=== PATIENT | female | born 1980 ===

== ENCOUNTER → 2020-01-26 | Outpatient (CLI) | payer OTHER | END | disposition home or self-care (01) | LOC: PRENATAL 08:13 | PROVIDERS: ATTEND Obstetrics & Gynecology Maternal & Fetal Medicine | DX: Z36.89 Encounter for other specified antenatal screening (principal); O36.80X1 Pregnancy with inconclusive fetal viability, fetus 1; O09.521 Supervision of elderly multigravida, first trimester; Z3A.11 11 weeks gestation of pregnancy ==

== ENCOUNTER → 2020-03-21 | Outpatient (CLI) | payer OTHER | END | disposition home or self-care (01) | LOC: PRENATAL 08:00 | PROVIDERS: ATTEND Obstetrics & Gynecology Maternal & Fetal Medicine | DX: O35.0XX1 Maternal care for (suspected) central nervous system malformation in fetus, fetus 1 (principal); O35.3XX1 Maternal care for (suspected) damage to fetus from viral disease in mother, fetus 1; O98.512 Other viral diseases complicating pregnancy, second trimester; Z36.89 Encounter for other specified antenatal screening; Z3A.19 19 weeks gestation of pregnancy ==

== ENCOUNTER → 2020-05-24 | Outpatient (CLI) | payer OTHER | END | disposition home or self-care (01) | LOC: PRENATAL 08:00 | PROVIDERS: ATTEND Obstetrics & Gynecology Maternal & Fetal Medicine | DX: O26.842 Uterine size-date discrepancy, second trimester (principal); O09.522 Supervision of elderly multigravida, second trimester; O99.212 Obesity complicating pregnancy, second trimester; Z36.89 Encounter for other specified antenatal screening; Z3A.28 28 weeks gestation of pregnancy ==

== ENCOUNTER 2020-07-20 10:45 | Inpatient (IN) | payer OTHER ==
[~2020-07-20] VITALS: Ht 160 cm; Wt 3.2 kg
[2020-07-30] MEDS ORDERED: PRENATAL CAPLE1 EAC1 PO (14:23)
[2020-08-18] MEDS ORDERED: AMPHETAMINE SAL20 M1 (10:27)
[2020-08-22] MEDS ORDERED: IBUPROFEN800 MG PO (13:49)
== END 2020-08-22 13:55 | disposition home or self-care (01) | DRG 787 ==
LOC: OB/GYN 07-27 10:45 → O/R 08-18 05:25 → OB/GYN 08-18 12:10
PROVIDERS: ADMIT Specialist; ATTEND Specialist
PROC: 4A1HXFZ Monitoring of Products of Conception, Cardiac Rhythm, External Approach (ICD-10-PCS; 2020-08-18)
PROC: 10D00Z1 Extraction of Products of Conception, Low, Open Approach (ICD-10-PCS; principal; 2020-08-18 05:00)
DX: O65.9 Obstructed labor due to maternal pelvic abnormality, unspecified (principal); O99.63 Diseases of the digestive system complicating the puerperium; K91.89 Other postprocedural complications and disorders of digestive system; O48.0 Post-term pregnancy; Z3A.41 41 weeks gestation of pregnancy; Z37.0 Single live birth

== ENCOUNTER 2020-07-30 13:54 | Outpatient (CLI) | payer OTHER ==
[2020-07-30] MEDS ORDERED: PRENATAL CAPLE1 EAC1 PO (14:23)
== END 2020-07-31 11:24 | disposition home or self-care (01) ==
LOC: OBS/DEL 13:54
PROVIDERS: ATTEND Specialist
DX: O36.8130 Decreased fetal movements, third trimester, not applicable or unspecified (principal); Z3A.38 38 weeks gestation of pregnancy

== ENCOUNTER 2020-08-07 09:29 | Outpatient (CLI) | payer OTHER ==
[~2020-08-07 09:29] MED LIST: PRENATAL CAPLE1 EAC1 PO
== END 2020-08-07 11:03 | disposition home or self-care (01) ==
LOC: NST 09:29
PROVIDERS: ATTEND Specialist
DX: Z34.03 Encounter for supervision of normal first pregnancy, third trimester (principal)

== ENCOUNTER 2020-08-14 08:52 | Outpatient (CLI) | payer OTHER | END 2020-08-14 09:41 | disposition home or self-care (01) | LOC: NST 08:52 | PROVIDERS: ATTEND Specialist | DX: Z34.00 Encounter for supervision of normal first pregnancy, unspecified trimester (principal) ==